=== PATIENT | male | born 1985 | race Native Hawaiian/Other Pacific Islander ===

== ENCOUNTER 2018-11-20 13:58 | Emergency (ER) | payer OTHER ==
[~2018-11-20] VITALS: Ht 172.7 cm; Wt 86.2 kg
--- NOTE | 2018-11-20 14:32 | NUR ---
IRA MEJIA AT BEDSIDE FOR MSE.
[2018-11-20 15:17] LABS: *BILIRUBIN,URIN NEGATIVE (NEGATIVE); *BLOOD, URINE NEGATIVE (NEGATIVE); *CLARITY,URINE CLEAR (CLEAR); *COLOR,URINE YELLOW (YELLOW); *KETONES,URINE NEGATIVE (NEGATIVE); *UROBILINOGEN,URINE 0.2 E.U./dl (NORMAL); LEUKOCYTE ESTERASE ,URINE NEGATIVE (NEGATIVE); NITRITE, URINE NEGATIVE (NEGATIVE); PH,URINE 5.5 (5.0-8.0); UGLUCOSE NEGATIVE (NEGATIVE)
[2018-11-20] MEDS ORDERED: LIDOCAINE HCL 1% 20 ML VIAL ONE (15:19)
[2018-11-20] MEDS ORDERED: AZITHROMYCIN 250 MG TABLET ONE (15:20)
[2018-11-20] MEDS ORDERED: CEFTRIAXONE 500 MG VIAL ONE (15:20)
[2018-11-20] MEDS: AZITHROMYCIN 250 MG TABLET PO ONE (15:39)
[2018-11-20] MEDS: CEFTRIAXONE 500 MG VIAL IM ONE (15:39)
--- NOTE | 2018-11-20 16:12 | NUR ---
Patient discharged to home in stable conditon. Written and verbal after care instructions given. Patient verbalizes understanding of instructions. ALL BELONGINGS W/ PT. PT SELF-AMBULATED W/O DIFFICULTY.
[2018-11-20 16:13] VITALS: BP 133/82
[2018-11-22 00:06] LABS: *GC NAA Negative (Negative); *TRIC.VAG. NAA Negative (Negative)
== END 2018-11-20 16:13 | disposition home or self-care (01) ==
LOC: ER 13:58
DX: N50.812 Left testicular pain (principal); N34.2 Other urethritis
CPT/HCPCS: 76870; 81001; 87491; 96372; 99284; J0696; J3490; A4663; Q0144

== ENCOUNTER 2019-06-14 05:48 | Emergency (ER) | payer OTHER ==
[~2019-06-14] VITALS: Ht 172.7 cm; Wt 81.6 kg
--- NOTE | 2019-06-14 06:05 | NUR ---
Dr. Gil at bedside for MSE.
[2019-06-14] MEDS ORDERED: ASPIRIN 325 MG TABLET ONE (06:14)
[2019-06-14] MEDS ORDERED: ASPIRIN 325 MG TABLET PO ONE (06:15)
--- NOTE | 2019-06-14 06:18 | NUR ---
Xray at bedside.
[2019-06-14 06:30] LABS: BASOPHILS # (AUTO) 0.1 K/uL (0.0-8.0); BASOPHILS % (AUTO) 1.2 % (0.0-2.0); EOSINOPHILS # (AUTO) 0.3 K/uL (0.0-0.7); EOSINOPHILS % (AUTO) 3.4 % (0.0-7.0); HEMATOCRIT 47.4 % (36.7-47.1); HEMOGLOBIN 15.5 g/dL (12.5-16.3); LYMPHOCYTES # (AUTO) 3.9 K/uL (20.0-40.0); LYMPHOCYTES % (AUTO) 44.7 % (20.5-51.5); MEAN CORPUSCULAR HEMOGLOBIN 29.5 uug (23.8-33.4); MEAN CORPUSCULAR HGB CONC 33 g/dL (32.5-36.3); MEAN CORPUSCULAR VOLUME 89.9 fL (73.0-96.2); MONOCYTES # (AUTO) 0.6 K/uL (2.0-10.0); MONOCYTES % (AUTO) 7.4 % (0.0-11.0); NEUTROPHILS # (AUTO) 3.8 K/uL (1.8-8.9); NEUTROPHILS % (AUTO) 43.3 % (38.5-71.5); PLATELET COUNT (AUTO) 301 K/uL (152-348); RED BLOOD CELL COUNT(AUTO) 5.27 MIL/uL (4.06-5.63); WHITE BLOOD COUNT (AUTO) 8.7 K/uL (3.6-10.2)
[2019-06-14 06:50] LABS: BILIRUBIN,DIRECT 0.1 mg/dL (0.0-0.2); BILIRUBIN,TOTAL 0.2 mg/dL (0.2-1.0); TOTAL PROTEIN, SERUM 7.9 g/dL (6.4-8.2)
--- NOTE | 2019-06-14 07:02 | NUR ---
Report given to Cassy puente.
--- NOTE | 2019-06-14 07:28 | NUR ---
patient is awake and alert with no complaints. Awaiting 3 hour pepe for second troponin
--- NOTE | 2019-06-14 09:20 | NUR ---
Second troponin done, awaiting test results
--- NOTE | 2019-06-14 10:42 | NUR ---
PATIENT STATES NO CHEST PAIN OR SOB AT THIS TIME. DC AND FOLLOW UP INSTRUCTIONS GIVEN AND EXPLAINED TO PATIENT WHO STATES HE UNDERSTANDS ALL INSTRUCTIONS
== END 2019-06-14 10:45 | disposition home or self-care (01) ==
LOC: ER 05:51
DX: R07.89 Other chest pain (principal); Z60.2 Problems related to living alone
CPT/HCPCS: 36415; 70030-TC; 71045; 85025; 85730; 93005; A4663